=== PATIENT | male | born 1990 | race African-American/Black ===

== ENCOUNTER 2020-09-20 19:30 | Emergency (ER) | payer SELFPAY ==
[2020-09-20] MEDS: diphenhydrAMINE 25 MG Cap PO ONE (19:55)
[2020-09-20] MEDS: predniSONE 20 MG Tab PO ONE (19:55)
--- NOTE | 2020-09-20 19:58 | EDM.PDOC ---
ED HPI GENERAL MEDICAL PROBLEM - General Chief Complaint: Allergic Reaction Stated Complaint: BEE STINGS Time Seen by Provider: 09/20/20 19:35 - History of Present Illness INITIAL COMMENTS - FREE TEXT/NARRATIVE: [place] when he was stung by multiple bees on both upper arms and the back of his neck. He did have some mild SOB so decided to come in for tx. The SOB resolved along the way to [facility] which [place]. He has not taken any antihistamines or other meds for this. He takes no other meds. He tells me his BP has been elevated before. - Related Data Allergies Allergy/AdvReac Type Severity Reaction Status Date / Time No Known Allergies Allergy Verified 09/18/14 14:40 Home Meds: Home Meds NK [No Known Home Meds] 09/18/14 [History] Past Medical History - Past Health History Medical/Surgical History: Denies Medical/Surgical History Other Musculoskeletal History: none ED ROS ALLERGIC REACTION - Review of Systems Review Of Systems: Comprehensive ROS is negative, except as noted in HPI. Immunologic: Reports: Other (Bee stings with reaction.) ED EXAM GENERAL NO PERIP PULSE - Physical Exam Exam: See Below Text/Narrative:: Pt is awake and alert. No respiratory distress. Lungs are clear with good A/E throughout. Examining the skin reveals welts of both upper arms and on the back of his neck from the bee stings. Skin is warm and dry. Course - Re-Assessments/Exams Free Text/Narrative Re-Assessment/Exam: 09/20/20 19:58 Prednisone 20 mg was given PO. Benadryl 25 mg given PO, because he is driving home. He is to purchase Benadryl and take 2 tabs at HS tonite. Then 1-2 tabs TID tomorrow, then prn. He is to re check his BP 1-2 more times this week, and call the local clinic for a BP re check. Departure - Departure Time of Disposition: 21:50 Disposition: Admitted As Inpatient 66 Condition: Good Clinical Impression: Elevated BP without diagnosis of hypertension Bee sting reaction Qualifiers: Encounter type: initial encounter Injury intent: accidental or unintentional Qualified Code(s): T63.441A - Toxic effect of venom of bees, accidental (unintentional), initial encounter - Discharge Information *PRESCRIPTION DRUG MONITORING PROGRAM REVIEWED*: Not Applicable *COPY OF PRESCRIPTION DRUG MONITORING REPORT IN PATIENT RENITA: Not Applicable Additional Instructions: Continue Taking Benadryl at bedtime tonite, then three times tomorrow, then as needed. Re check BP 1-2 times this week. Call clinic to schedule an [place] for BP re check.
[2020-09-20 20:24] VITALS: BP 191/126; PULSE 104
== END 2020-09-20 20:00 | disposition home or self-care (01) ==
LOC: LB.ED 19:30
DX: T63.441A Toxic effect of venom of bees, accidental (unintentional), initial encounter (principal); R03.0 Elevated blood-pressure reading, without diagnosis of hypertension
CPT/HCPCS: 99282; A9270-GY; J7512